=== PATIENT | female | born 1975 | race Hispanic/Latino ===

== ENCOUNTER 2017-07-15 12:11 | Emergency (ER) | payer MEDICAID ==
[2017-07-15 13:26] LABS: Basophils % (Auto) 0.7 % (0.0-1.8); Eosinophils % (Auto) 1.5 % (0.0-4.3); Hematocrit 36.9 % (30.3-42.9); Hemoglobin 12.1 gm/dl (10.1-14.3); Mean Corpuscular HGB Conc 33 % (30-34); Mean Corpuscular Volume 75 fl (79-97); Red Blood Count 4.91 M/mm3 (3.65-5.03); Red Cell Distribution Width 19.5 % (13.2-15.2)
[2017-07-15 13:29] LABS: Mean Corpuscular Hemoglobin 25 pg (28-32); Platelet Count 277 K/mm3 (140-440)
[2017-07-15 14:44] LABS: Bacteria,Urine 1+ /HPF (Negative); Bilirubin,Urine NEG (Negative); Blood,Urine LG (Negative); Ketones,Urine NEG (Negative); Leukocyte Esterase,Urine NEG (Negative); Mucus,Urine 1+ /HPF; Nitrite,Urine NEG (Negative); Urobilinogen,Urine < 2.0 mg/dL (<2.0)
[2017-07-15 14:54] LABS: RBC,Urine > 182.0 /HPF (0.0-6.0); WBC,Urine < 1.0 /HPF (0.0-6.0)
[2017-07-15] MEDS ORDERED: METHERGINE IM ONE (15:48)
--- NOTE | 2017-07-15 16:00 | Emergency Department Report ---
ED Female HPI - General Chief complaint: Vaginal Bleeding Stated complaint: VAGINAL BLEEDING Time Seen by Provider: 07/15/17 15:41 Source: patient Mode of arrival: Ambulatory Limitations: No Limitations - History of Present Illness Initial comments: Patient is a 41 years old female sent from her [employer] office by nurse practitioner to the ER for evaluation of vaginal bleeding this been going on on and off for the last few days patient stated that she had an ultrasound yesterday and he was told it was normal. Patient stated that Dr. George is planning to do biopsy and possibly hysterectomy. Patient denied any shortness of breath dizziness or chest pain. MD Complaint: vaginal bleeding -: Gradual Severity: moderate Quality: cramping Are you Now?: No Associated Symptoms: vaginal bleeding, abdominal pain - Related Data Home Medications Medication Instructions Recorded Confirmed Last Taken No Known Home Medications [No 08/11/13 03/20/16 Unknown Reported Home Medications] Allergies Allergy/AdvReac Type Severity Reaction Status Date / Time shellfish derived Allergy Hives Verified 07/15/17 12:43 IV Constrast AdvReac Angioedema Uncoded 07/15/17 12:43 ED Review of Systems ROS: Stated complaint: VAGINAL BLEEDING Other details as noted in HPI Comment: All other systems reviewed and negative Constitutional: denies: chills, fever Respiratory: denies: cough, shortness of breath Cardiovascular: denies: chest pain, palpitations, dyspnea on exertion Gastrointestinal: abdominal pain Neurological: denies: headache ED Past Medical Hx - Past Medical History Previous Medical History?: Yes Additional medical history: mvp, heart mumur, Elevated ICP Hypertension. Idiopathic increased intracranial pressure. Endometriosis. Anemia - Surgical History Past Surgical History?: Yes Additional Surgical History: tubal 2001 reconstructive surgery to left foot/ ankle. R shoulder rotator cuff - Social History Smoking Status: Never Smoker - Medications Home Medications: Home Medications Medication Instructions Recorded Confirmed Last Taken Type No Known Home Medications [No 08/11/13 03/20/16 Unknown History Reported Home Medications] ED Physical Exam - General Limitations: No Limitations General appearance: alert, in no apparent distress - Head Head exam: Present: normocephalic - Eye Eye exam: Present: normal appearance, PERRL - ENT ENT exam: Present: normal exam, normal orophraynx, mucous membranes moist - Neck Neck exam: Present: normal inspection - Respiratory Respiratory exam: Present: normal lung sounds bilaterally. Absent: respiratory distress, wheezes, rales, rhonchi, stridor, chest wall tenderness, accessory muscle use, decreased breath sounds, prolonged expiratory - Cardiovascular Cardiovascular Exam: Present: regular rate, normal rhythm, normal heart sounds - GI/Abdominal GI/Abdominal exam: Present: soft, normal bowel sounds. Absent: tenderness, guarding, rebound, rigid, mass, bruit, pulsatile mass, hernia - Extremities Exam Extremities exam: Present: normal inspection - Back Exam Back exam: Present: normal inspection. Absent: CVA tenderness (R), CVA tenderness (L) - Neurological Exam Neurological exam: Present: alert, oriented X3, CN II-XII intact, normal gait - Skin Skin exam: Present: warm, intact, normal color ED Course Vital Signs 07/15/17 12:37 Temperature 98 F Pulse Rate 82 Respiratory 16 Rate Blood Pressure 129/74 O2 Sat by Pulse 99 Oximetry - Reevaluation(s) Reevaluation #1: 07/15/17 16:[address] Dionicio George nurse practitioner, she confirmed that the patient did have an ultrasound and it was basically negative for acute abnormalities. She advised to give the patient LYSTEDA 1300, 3 times a day 5 days and to follow up with them in the office as a scheduled for July [address] Dionicio George. ED Medical Decision Making - Lab Data Result diagrams: 07/15/17 12:59 - Medical Decision Making Patient's labs reviewed showed no evidence of anemia, discussed with Dr. Dionicio George this advised patient can be discharged home and to follow-up with him on July 20. Patient advised to return to the ER if her symptoms are not improving or she started having more weakness shortness of breath chest pain. Critical care attestation.: If time is entered above; I have spent that time in minutes in the direct care of this critically ill patient, excluding procedure time. ED Disposition Clinical Impression: Vaginal bleeding, abnormal Disposition: DC-01 TO HOME OR SELFCARE Is pt being admited?: No Condition: Stable Instructions: Menstruation (ED) Referrals: PRIMARY CARE, [Primary Care Provider] - 3-5 Days
[2017-07-15] MEDS ORDERED: TORADOL IM ONE (16:15)
[2017-07-15 17:08] VITALS: BP 134/67
== END 2017-07-15 17:09 | disposition home or self-care (01) ==
LOC: ED 12:11
DX: N93.9 Abnormal uterine and vaginal bleeding, unspecified (principal); Z91.013 Allergy to seafood
CPT/HCPCS: 36415; 81001; 84702; 85025; 86850; 86900; 86901; 96372; 99283; J1885; J2210

== ENCOUNTER 2017-09-23 09:02 | Day surgery (SDC) | payer MEDICAID ==
--- NOTE | 2017-09-21 09:31 | Anesthesia Consultation ---
Anesthesia Consult and Med Hx Date of service: 09/21/17 - Airway Anesthetic Teeth Evaluation: Good ROM Head & Neck: Adequate Mental/Hyoid Distance: Adequate Mallampati Class: Class II Intubation Access Assessment: Probably Good - Pulmonary Exam CTA: Yes - Cardiac Exam Cardiac Exam: RRR - Pre-Operative Health Status ASA Pre-Surgery Classification: ASA2 Proposed Anesthetic Plan: General - Pulmonary Hx Smoking: Yes (former. quit in 2009) - Cardiovascular System Hx Hypertension: No - Central Nervous System Hx Psychiatric Problems: Yes - Hematic Hx Anemia: Yes - Other Systems Hx Cancer: No
[2017-09-21 09:41] LABS: Basophils % (Auto) 0.9 % (0.0-1.8); Eosinophils % (Auto) 1.7 % (0.0-4.3); Hematocrit 30.4 % (30.3-42.9); Hemoglobin 9.6 gm/dl (10.1-14.3); Mean Corpuscular HGB Conc 32 % (30-34); Mean Corpuscular Volume 72 fl (79-97); Platelet Count 305 K/mm3 (140-440); Red Blood Count 4.23 M/mm3 (3.65-5.03); Red Cell Distribution Width 18.9 % (13.2-15.2); White Blood Count 7.1 K/mm3 (4.5-11.0)
[2017-09-21 09:51] LABS: Mean Corpuscular Hemoglobin 23 pg (28-32)
[2017-09-21 10:39] VITALS: BP 130/84
[~2017-09-23 09:02] MED LIST: PEPCID PO NR; TRANSDERM-SCOP TD NR; VERSED IV NR
[2017-09-23] MEDS ORDERED: DECADRON ONE (09:29)
[2017-09-23] MEDS ORDERED: XYLOCAINE MPF 2% ONE (09:29)
[2017-09-23] MEDS ORDERED: DIPRIVAN 10 MG/ML IV ONE (09:29)
[2017-09-23] MEDS ORDERED: SUBLIMAZE ONE (09:29)
[2017-09-23] MEDS ORDERED: ZOFRAN ONE (09:30)
[2017-09-23] MEDS ORDERED: TORADOL ONE (09:30)
[2017-09-23] MEDS ORDERED: LACTATED RINGERS 1,000 ML IV SCH (10:00)
== END 2017-09-23 09:03 | disposition home or self-care (01) ==
LOC: OR 09:02
PROVIDERS: ATTEND Obstetrics & Gynecology
DX: N93.9 Abnormal uterine and vaginal bleeding, unspecified (principal); Z87.891 Personal history of nicotine dependence; Z53.8 Procedure and treatment not carried out for other reasons
CPT/HCPCS: 36415; 84703; 85025; J1100; J1885; J2250; J2405; J2704; J3010; J7120